=== PATIENT | female | born 1945 | race Asian ===

== ENCOUNTER 2022-04-28 18:22 | Inpatient (IN) ==
[2022-04-28] MEDS: Enoxaparin 40 MG/0.4 ML SYR SUBCUT SCH (21:13)
[2022-04-28] MEDS ORDERED: Furosemide 20 mg/2 ml IV VIAL IV SLOW PU ONE (22:35)
[2022-04-28 23:13] LABS: Urine Sodium Concentration < 18 mmol/L
[2022-04-28 23:30] LABS: Urine Osmo 713 mOsm/kg (150-1150)
[2022-04-28 23:53] LABS: Urine Chloride Concentration < 22 mmol/L; Urine Potassium Concentration 76.2 mmol/L
[2022-04-29 00:14] LABS: Albumin 3.1 g/dL (3.2-5.2)
[2022-04-29 00:17] LABS: Potassium 4.4 mmol/L (3.5-5.0)
[2022-04-29 00:21] LABS: Total Bilirubin 0.9 mg/dL (0.2-1.0)
[2022-04-29 00:40] LABS: Albumin/Globulin Ratio 1.3 (1-3); Calcium 8.3 mg/dL (8.6-10.3); Globulin 2.4 g/dL (2-4); Total Protein 5.5 g/dL (6.4-8.9); eGFR CKD-EPI 90.2 (>60)
[2022-04-29 00:41] LABS: Urine Chloride Concentration < 22 mmol/L; Urine Potassium Concentration 76.8 mmol/L
[2022-04-29 03:34] LABS: High Sensitivity Troponin 1 Hr 9 pg/mL (<15)
[2022-04-29 06:00] LABS: ABS Eosinophils 0.1 10^3/ul (0-0.6); ABS Lymphocytes 0.3 10^3/ul (1.0-4.8); ABS Monocytes 0.5 10^3/ul (0-0.8); ABS Neutrophils 6.3 10^3/ul (1.5-7.7); Hematocrit 44 % (35-47); Hemoglobin 14.5 g/dL (12.0-16.0); Lymphocyte % 4.4 %; Mean Corpuscular HGB Conc 33 g/dL (31-36); Mean Corpuscular Hemoglobin 31 pg (27-31); Mean Corpuscular Volume 93 fL (80-97); Mean Platelet Volume 7.2 fL (7.4-10.4); Nucleated Red Blood Cells % 0.1; Platelet Count 241 10^3/uL (150-450); Red Blood Count 4.75 10^6 /uL (3.70-4.87); Red Cell Distribution Width 17 % (10-15); White Blood Count 7.2 10^3/uL (3.5-10.8)
[2022-04-29 06:48] LABS: Calcium 8.1 mg/dL (8.6-10.3); Magnesium 1.7 mg/dL (1.9-2.7); Phosphorus 3.3 mg/dL (2.5-5.0); Potassium 4.2 mmol/L (3.5-5.0); eGFR CKD-EPI 90.2 (>60)
[2022-04-29] MEDS: Timolol 0.5% OPTH.SOL BTL BOTH EYES SCH ×2 (08:35→20:59)
[2022-04-29 10:13] LABS: Free T4 1.4 ng/dL (0.61-1.12)
[2022-04-29] MEDS ORDERED: Lidocaine 1% VIAL 10 MG/ML VIAL ONE (10:13)
[2022-04-29] MEDS ORDERED: NS 0.9% 250 ml 250 ML IV ONE (10:42)
[2022-04-29] MEDS ORDERED: Albumin Human 5% 12.5 GM/250 ML BTL IV ONE (12:00)
[2022-04-29] MEDS ORDERED: Albumin Human 5% 25 GM/500 ML BTL IV ONE (12:00)
[2022-04-29 12:09] LABS: Body Fluid WBC 213 /mcL
[2022-04-29 12:43] LABS: Body Fluid Appearance Clear; Body Fluid Band 1 %; Body Fluid Color Yellow; Body Fluid Mono 26 %; Body Fluid Source Pleural Fluid; Body Fluid Total Cells Counted 200
[2022-04-29 13:56] LABS: Free T3 1.8 pg/mL (2.5-3.9)
[2022-04-29] MEDS ORDERED: Lactated Ringers 500 ml BAG 500 ML IV ONE (14:03)
[2022-04-29 17:31] LABS: High Sensitivity Troponin 1 Hr 10 pg/mL (<15)
[2022-04-29] MEDS ORDERED: Lactated Ringers 500 ml BAG 250 ML IV ONE (20:15)
[2022-04-29] MEDS ORDERED: LACTATED RINGERS IV ONE (20:15)
[2022-04-29] MEDS ORDERED: Hydrocortisone INJ 100 MG/2ML 2 ML VIAL IV ONE (20:17)
[2022-04-29] MEDS ORDERED: Magnesium Sulfate 2 gm BAG 2 GM/50 ML BAG IVPB ONE (20:19)
[2022-04-29] MEDS: Enoxaparin 40 MG/0.4 ML SYR SUBCUT SCH (20:38)
[2022-04-29 20:46] LABS: C Reactive Protein 36.88 mg/L (<8.01)
[2022-04-29 20:57] LABS: ABS Eosinophils 0.1 10^3/ul (0-0.6); ABS Lymphocytes 0.3 10^3/ul (1.0-4.8); ABS Monocytes 0.5 10^3/ul (0-0.8); ABS Neutrophils 8.4 10^3/ul (1.5-7.7); Eosinophil % 0.7 %; Hematocrit 42 % (35-47); Hemoglobin 13.8 g/dL (12.0-16.0); Lymphocyte % 3.2 %; Mean Corpuscular HGB Conc 33 g/dL (31-36); Mean Corpuscular Hemoglobin 31 pg (27-31); Mean Corpuscular Volume 93 fL (80-97); Mean Platelet Volume 7.4 fL (7.4-10.4); Nucleated Red Blood Cells % 0.1; Platelet Count 228 10^3/uL (150-450); Red Blood Count 4.48 10^6 /uL (3.70-4.87); Red Cell Distribution Width 17 % (10-15); White Blood Count 9.4 10^3/uL (3.5-10.8)
[2022-04-29] MEDS: Latanoprost 0.005% 2.5 ml BTL BOTH EYES SCH (20:59)
[2022-04-29 21:24] LABS: Albumin 2.9 g/dL (3.2-5.2); Albumin/Globulin Ratio 1.3 (1-3); Calcium 7.8 mg/dL (8.6-10.3); Globulin 2.2 g/dL (2-4); Potassium 4.5 mmol/L (3.5-5.0); Total Bilirubin 0.7 mg/dL (0.2-1.0); Total Protein 5.1 g/dL (6.4-8.9); eGFR CKD-EPI 75.2 (>60)
[2022-04-29] MEDS: cefTRIAXone 1 gm/50 mL D5W 1 GM/50 ML BAG IV SCH (22:01)
[2022-04-30] MEDS ORDERED: Lactated Ringers 500 ml BAG 500 ML IV ONE (02:51)
[2022-04-30] MEDS: metroNIDAZOLE IV 500 MG/100ML 500 MG/100 ML BAG IVPB SCH ×3 (05:12→19:17)
[2022-04-30 05:28] LABS: ABS Lymphocytes 0.2 10^3/ul (1.0-4.8); ABS Monocytes 0.3 10^3/ul (0-0.8); ABS Neutrophils 6.6 10^3/ul (1.5-7.7); Eosinophil % 0.2 %; Hematocrit 39 % (35-47); Hemoglobin 13.3 g/dL (12.0-16.0); Lymphocyte % 3.3 %; Mean Corpuscular HGB Conc 34 g/dL (31-36); Mean Corpuscular Hemoglobin 32 pg (27-31); Mean Corpuscular Volume 94 fL (80-97); Mean Platelet Volume 7.3 fL (7.4-10.4); Nucleated Red Blood Cells % 0.1; Platelet Count 205 10^3/uL (150-450); Red Blood Count 4.17 10^6 /uL (3.70-4.87); Red Cell Distribution Width 17 % (10-15); White Blood Count 7.1 10^3/uL (3.5-10.8)
[2022-04-30 06:22] LABS: Albumin 2.7 g/dL (3.2-5.2); Albumin/Globulin Ratio 1.4 (1-3); Calcium 7.5 mg/dL (8.6-10.3); Magnesium 2.2 mg/dL (1.9-2.7); Potassium 4.1 mmol/L (3.5-5.0); Total Bilirubin 0.6 mg/dL (0.2-1.0); Total Protein 4.7 g/dL (6.4-8.9); eGFR CKD-EPI 89.6 (>60)
[2022-04-30] MEDS: Timolol 0.5% OPTH.SOL BTL BOTH EYES SCH ×2 (08:29→20:09)
[2022-04-30] MEDS ORDERED: NS 0.9% 250 ml 250 ML IV SCH (13:00)
[2022-04-30] MEDS: Latanoprost 0.005% 2.5 ml BTL BOTH EYES SCH (20:09)
[2022-04-30] MEDS: Enoxaparin 40 MG/0.4 ML SYR SUBCUT SCH (20:09)
[2022-04-30] MEDS: cefTRIAXone 1 gm/50 mL D5W 1 GM/50 ML BAG IV SCH (20:21)
[2022-05-01] MEDS: metroNIDAZOLE IV 500 MG/100ML 500 MG/100 ML BAG IVPB SCH ×3 (03:32→20:03)
[2022-05-01 05:16] LABS: ABS Eosinophils 0.1 10^3/ul (0-0.6); ABS Lymphocytes 0.3 10^3/ul (1.0-4.8); ABS Monocytes 0.5 10^3/ul (0-0.8); ABS Neutrophils 5.4 10^3/ul (1.5-7.7); Eosinophil % 1.9 %; Hematocrit 39 % (35-47); Hemoglobin 13.4 g/dL (12.0-16.0); Lymphocyte % 4.2 %; Mean Corpuscular HGB Conc 34 g/dL (31-36); Mean Corpuscular Hemoglobin 32 pg (27-31); Mean Corpuscular Volume 94 fL (80-97); Mean Platelet Volume 7.4 fL (7.4-10.4); Platelet Count 210 10^3/uL (150-450); Red Blood Count 4.17 10^6 /uL (3.70-4.87); Red Cell Distribution Width 17 % (10-15); White Blood Count 6.4 10^3/uL (3.5-10.8)
[2022-05-01 05:51] LABS: Calcium 7.3 mg/dL (8.6-10.3); Potassium 4.2 mmol/L (3.5-5.0); eGFR CKD-EPI 90.9 (>60)
[2022-05-01] MEDS: Timolol 0.5% OPTH.SOL BTL BOTH EYES SCH ×2 (07:40→20:20)
[2022-05-01] MEDS ORDERED: Lactated Ringers 1000 ml BAG 1,000 ML IV ONE (10:14)
[2022-05-01 13:44] LABS: Body Fluid Bilirubin 0.3 mg/dL; Fluid Type PLEURAL FLUID; Lactate Dehydrogenase, BF 72 U/L
[2022-05-01] MEDS ORDERED: Ondansetron 4 mg VIAL 2 MG/ML 2 ml VIAL IV PRN (19:15)
[2022-05-01] MEDS ORDERED: Ondansetron 4 mg VIAL 2 MG/ML 2 ml VIAL ONE (19:21)
[2022-05-01] MEDS: cefTRIAXone 1 gm/50 mL D5W 1 GM/50 ML BAG IV SCH (19:28)
[2022-05-01] MEDS: Enoxaparin 40 MG/0.4 ML SYR SUBCUT SCH (19:35)
[2022-05-01] MEDS: Latanoprost 0.005% 2.5 ml BTL BOTH EYES SCH (20:20)
[2022-05-02] MEDS: metroNIDAZOLE IV 500 MG/100ML 500 MG/100 ML BAG IVPB SCH ×3 (05:26→20:19)
[2022-05-02 07:38] LABS: ABS Lymphocytes 0.3 10^3/ul (1.0-4.8); ABS Monocytes 0.6 10^3/ul (0-0.8); ABS Neutrophils 8.1 10^3/ul (1.5-7.7); Eosinophil % 0.5 %; Hematocrit 45 % (35-47); Hemoglobin 15.4 g/dL (12.0-16.0); Lymphocyte % 3.2 %; Mean Corpuscular HGB Conc 34 g/dL (31-36); Mean Corpuscular Hemoglobin 33 pg (27-31); Mean Corpuscular Volume 95 fL (80-97); Mean Platelet Volume 7.3 fL (7.4-10.4); Nucleated Red Blood Cells % 0.1; Platelet Count 209 10^3/uL (150-450); Red Blood Count 4.75 10^6 /uL (3.70-4.87); Red Cell Distribution Width 17 % (10-15)
[2022-05-02 07:53] LABS: Blood Urea Nitrogen 21 mg/dL (6-24); CO2 Carbon Dioxide 29 mmol/L (22-32); Calcium 7.7 mg/dL (8.6-10.3); Chloride 93 mmol/L (101-111); Glucose 83 mg/dL (70-100); Potassium 4.4 mmol/L (3.5-5.0); Sodium 122 mmol/L (135-145); eGFR CKD-EPI 89.6 (>60)
[2022-05-02] MEDS: Timolol 0.5% OPTH.SOL BTL BOTH EYES SCH ×2 (09:11→20:25)
[2022-05-02 11:01] LABS: Glucose, BF 106 mg/dL
[2022-05-02 11:05] LABS: Fluid Type, Protein, Total PLEURAL FLUID; Total Protein, BF 2.4 g/dL
[2022-05-02] MEDS: Latanoprost 0.005% 2.5 ml BTL BOTH EYES SCH (20:20)
[2022-05-02] MEDS: Enoxaparin 40 MG/0.4 ML SYR SUBCUT SCH (20:21)
[2022-05-02] MEDS: cefTRIAXone 1 gm/50 mL D5W 1 GM/50 ML BAG IV SCH (23:12)
[2022-05-03] MEDS: metroNIDAZOLE IV 500 MG/100ML 500 MG/100 ML BAG IVPB SCH ×2 (05:14→12:00)
[2022-05-03 07:01] LABS: Calcium 7.9 mg/dL (8.6-10.3); Potassium 4.6 mmol/L (3.5-5.0); eGFR CKD-EPI 90.5 (>60)
[2022-05-03] MEDS: Timolol 0.5% OPTH.SOL BTL BOTH EYES SCH (08:47)
[2022-05-03] MEDS ORDERED: cefTRIAXone 1 gm/50 mL D5W 1 GM/50 ML BAG IV ONE (14:00)
[2022-05-03 16:28] VITALS: BP 119/75
== END 2022-05-03 16:35 | disposition home or self-care (01) | DRG 187 ==
LOC: ED 18:22 → EDHOLD 20:13 → SUATTDRO 20:13 → MEDTELE 04-29 09:55
PROVIDERS: ADMIT Internal Medicine; ATTEND Internal Medicine

== ENCOUNTER 2022-05-05 04:42 | Inpatient (IN) ==
[2022-05-05 05:03] LABS: Venous Bicarbonate HCO3 22.8 mmol/L (24-28)
[2022-05-05 05:05] LABS: ABS Lymphocytes 0.3 10^3/ul (1.0-4.8); ABS Monocytes 0.4 10^3/ul (0-0.8); ABS Neutrophils 9.5 10^3/ul (1.5-7.7); Eosinophil % 0.1 %; Hematocrit 45 % (35-47); Hemoglobin 14.6 g/dL (12.0-16.0); Lymphocyte % 2.5 %; Mean Corpuscular HGB Conc 33 g/dL (31-36); Mean Corpuscular Hemoglobin 31 pg (27-31); Mean Corpuscular Volume 95 fL (80-97); Mean Platelet Volume 7.2 fL (7.4-10.4); Nucleated Red Blood Cells % 0.3; Platelet Count 190 10^3/uL (150-450); Red Cell Distribution Width 18 % (10-15); White Blood Count 10.2 10^3/uL (3.5-10.8)
[2022-05-05 05:22] LABS: Albumin/Globulin Ratio 1.3 (1-3); Calcium 8.4 mg/dL (8.6-10.3); Globulin 2.4 g/dL (2-4); Total Bilirubin 0.6 mg/dL (0.2-1.0); Total Protein 5.4 g/dL (6.4-8.9); eGFR CKD-EPI 55.1 (>60)
[2022-05-05 05:24] LABS: Potassium 5.7 mmol/L (3.5-5.0)
[2022-05-05 06:12] LABS: Venous Bicarbonate HCO3 23.4 mmol/L (24-28)
[2022-05-05 06:52] LABS: High Sensitivity Troponin 1 Hr 13 pg/mL (<15)
[2022-05-05 08:08] LABS: Venous Bicarbonate HCO3 23.5 mmol/L (24-28)
[2022-05-05 09:04] LABS: PCO2 Arterial 55 mmHg (35-45)
[2022-05-05 09:05] LABS: PO2 Arterial 57 mmHg (80-100)
[2022-05-05] MEDS ORDERED: NS 0.9% 500 ml BAG 500 ML IV ONE ×2 (10:15→11:51)
[2022-05-05 10:25] LABS: Venous Bicarbonate HCO3 23.4 mmol/L (24-28)
[2022-05-05] MEDS ORDERED: fentaNYL 100 mcg/2 ml 50 MCG/ML VIAL ONE (14:02)
[2022-05-05 15:09] LABS: C Reactive Protein 50.24 mg/L (<8.01)
[2022-05-05] MEDS ORDERED: Norepinephrine 16MCG/ML BAGD5W 4,000 MCG/250 ML BAG IV ONE (16:57)
[2022-05-05] MEDS ORDERED: NORMOSOL-R pH 7.4 1000 mL BAG 1,000 ML IV SCH (17:00)
[2022-05-05] MEDS ORDERED: Norepinephrine 16MCG/ML BAGD5W 4,000 MCG/250 ML BAG IV SCH (17:00)
[2022-05-05 18:55] LABS: INR 1.64 (0.89-1.11)
[2022-05-05] MEDS ORDERED: Piperacillin/Tazobac ADVAN 3.375 GM in NS 0.9% 100 ml BAG 100 ML IV SCH (19:00)
[2022-05-05] MEDS: Cefepime 1 GM in Dextrose 1 GM/50 ML BAG IV SCH (20:41)
[2022-05-05] MEDS: Linezolid 600 MG IVPREMIX(*) 600 MG/300 ML BAG IVPB SCH (20:43)
[2022-05-05 21:56] LABS: Venous Bicarbonate HCO3 24.9 mmol/L (24-28)
[2022-05-06] MEDS ORDERED: Norepinephrine 16MCG/ML BAG NS 4,000 MCG/250 ML BAG IV SCH ×2 (01:00→01:29)
[2022-05-06 05:53] LABS: ABS Lymphocytes 0.2 10^3/ul (1.0-4.8); ABS Monocytes 0.6 10^3/ul (0-0.8); ABS Neutrophils 9.5 10^3/ul (1.5-7.7); Eosinophil % 0.3 %; Hematocrit 42 % (35-47); Lymphocyte % 1.8 %; Mean Corpuscular HGB Conc 33 g/dL (31-36); Mean Corpuscular Hemoglobin 31 pg (27-31); Mean Corpuscular Volume 94 fL (80-97); Mean Platelet Volume 7.1 fL (7.4-10.4); Nucleated Red Blood Cells % 0.3; Platelet Count 173 10^3/uL (150-450); Red Blood Count 4.51 10^6 /uL (3.70-4.87); Red Cell Distribution Width 17 % (10-15); White Blood Count 10.3 10^3/uL (3.5-10.8)
[2022-05-06 06:41] LABS: Calcium 8.2 mg/dL (8.6-10.3); Magnesium 1.8 mg/dL (1.9-2.7); Phosphorus 3.1 mg/dL (2.5-5.0); eGFR CKD-EPI 79.9 (>60)
[2022-05-06 06:48] LABS: Potassium 5.5 mmol/L (3.5-5.0)
[2022-05-06] MEDS ORDERED: Magnesium Sulfate 2 gm BAG 2 GM/50 ML BAG IVPB ONE (07:53)
[2022-05-06] MEDS: Cefepime 1 GM in Dextrose 1 GM/50 ML BAG IV SCH ×2 (07:53→19:14)
[2022-05-06] MEDS: Linezolid 600 MG IVPREMIX(*) 600 MG/300 ML BAG IVPB SCH ×2 (08:32→20:52)
[2022-05-06 09:33] LABS: Albumin 2.9 g/dL (3.2-5.2)
[2022-05-06] MEDS ORDERED: NORMOSOL-R pH 7.4 1000 mL BAG 1,000 ML IV SCH (10:00)
[2022-05-06 11:13] LABS: PCO2 Arterial 42 mmHg (35-45); PO2 Arterial 78 mmHg (80-100)
[2022-05-06] MEDS: Ondansetron 4 mg VIAL 2 MG/ML 2 ml VIAL IV PRN (23:18)
[2022-05-07 04:40] LABS: ABS Eosinophils 0.1 10^3/ul (0-0.6); ABS Lymphocytes 0.2 10^3/ul (1.0-4.8); ABS Monocytes 0.6 10^3/ul (0-0.8); ABS Neutrophils 8.5 10^3/ul (1.5-7.7); Hematocrit 41 % (35-47); Hemoglobin 13.4 g/dL (12.0-16.0); Lymphocyte % 1.9 %; Mean Corpuscular HGB Conc 33 g/dL (31-36); Mean Corpuscular Hemoglobin 31 pg (27-31); Mean Corpuscular Volume 94 fL (80-97); Nucleated Red Blood Cells % 0.3; Platelet Count 166 10^3/uL (150-450); Red Blood Count 4.36 10^6 /uL (3.70-4.87); Red Cell Distribution Width 17 % (10-15); White Blood Count 9.5 10^3/uL (3.5-10.8)
[2022-05-07 05:26] LABS: Blood Urea Nitrogen 25 mg/dL (6-24); CO2 Carbon Dioxide 31 mmol/L (22-32); Calcium 7.4 mg/dL (8.6-10.3); Chloride 92 mmol/L (101-111); Glucose 91 mg/dL (70-100); Magnesium 1.8 mg/dL (1.9-2.7); Phosphorus 1.7 mg/dL (2.5-5.0); Potassium 4.7 mmol/L (3.5-5.0); Sodium 121 mmol/L (135-145); eGFR CKD-EPI 93.7 (>60)
[2022-05-07] MEDS: Cefepime 1 GM in Dextrose 1 GM/50 ML BAG IV SCH ×2 (07:15→19:55)
[2022-05-07] MEDS ORDERED: Magnesium Sulfate 2 gm BAG 2 GM/50 ML BAG IVPB ONE (07:44)
[2022-05-07] MEDS ORDERED: Potassium Acid Phos 500 mg TAB PO ONE (07:45)
[2022-05-07] MEDS: Linezolid 600 MG IVPREMIX(*) 600 MG/300 ML BAG IVPB SCH ×2 (08:05→19:58)
[2022-05-07 21:33] LABS: Calcium 7.4 mg/dL (8.6-10.3); Magnesium 1.9 mg/dL (1.9-2.7); Phosphorus 1.8 mg/dL (2.5-5.0); Potassium 4.7 mmol/L (3.5-5.0)
[2022-05-08 06:04] LABS: ABS Eosinophils 0.1 10^3/ul (0-0.6); ABS Lymphocytes 0.2 10^3/ul (1.0-4.8); ABS Monocytes 0.5 10^3/ul (0-0.8); ABS Neutrophils 7.8 10^3/ul (1.5-7.7); Eosinophil % 1.5 %; Hematocrit 40 % (35-47); Hemoglobin 13.4 g/dL (12.0-16.0); Lymphocyte % 2.9 %; Mean Corpuscular HGB Conc 34 g/dL (31-36); Mean Corpuscular Hemoglobin 32 pg (27-31); Mean Corpuscular Volume 94 fL (80-97); Mean Platelet Volume 7.2 fL (7.4-10.4); Nucleated Red Blood Cells % 0.4; Platelet Count 160 10^3/uL (150-450); Red Blood Count 4.24 10^6 /uL (3.70-4.87); Red Cell Distribution Width 17 % (10-15); White Blood Count 8.7 10^3/uL (3.5-10.8)
[2022-05-08 06:39] LABS: Calcium 7.3 mg/dL (8.6-10.3); Magnesium 1.9 mg/dL (1.9-2.7); Phosphorus 1.7 mg/dL (2.5-5.0); Potassium 4.7 mmol/L (3.5-5.0); eGFR CKD-EPI 94.9 (>60)
[2022-05-08] MEDS: Cefepime 1 GM in Dextrose 1 GM/50 ML BAG IV SCH ×2 (08:06→17:22)
[2022-05-08] MEDS: Linezolid 600 MG IVPREMIX(*) 600 MG/300 ML BAG IVPB SCH ×2 (08:49→20:22)
[2022-05-08] MEDS ORDERED: Potassium Phosphate IV 15 MMOLE in NS 0.9% 250 ml 250 ML IVPB ONE (10:03)
[2022-05-08 12:06] LABS: Urine Osmo 632 mOsm/kg (150-1150)
[2022-05-09] MEDS: Cefepime 1 GM in Dextrose 1 GM/50 ML BAG IV SCH ×2 (05:18→17:02)
[2022-05-09 05:35] LABS: ABS Eosinophils 0.2 10^3/ul (0-0.6); ABS Lymphocytes 0.2 10^3/ul (1.0-4.8); ABS Monocytes 0.5 10^3/ul (0-0.8); ABS Neutrophils 8.5 10^3/ul (1.5-7.7); Eosinophil % 1.8 %; Hematocrit 39 % (35-47); Hemoglobin 13.1 g/dL (12.0-16.0); Mean Corpuscular HGB Conc 34 g/dL (31-36); Mean Corpuscular Hemoglobin 32 pg (27-31); Mean Corpuscular Volume 94 fL (80-97); Mean Platelet Volume 7.2 fL (7.4-10.4); Nucleated Red Blood Cells % 0.3; Platelet Count 163 10^3/uL (150-450); Red Blood Count 4.13 10^6 /uL (3.70-4.87); Red Cell Distribution Width 17 % (10-15); White Blood Count 9.4 10^3/uL (3.5-10.8)
[2022-05-09 06:18] LABS: Blood Urea Nitrogen 14 mg/dL (6-24); CO2 Carbon Dioxide 30 mmol/L (22-32); Calcium 7.1 mg/dL (8.6-10.3); Chloride 93 mmol/L (101-111); Glucose 95 mg/dL (70-100); Magnesium 1.6 mg/dL (1.9-2.7); Phosphorus 1.8 mg/dL (2.5-5.0); Potassium 4.6 mmol/L (3.5-5.0); Sodium 121 mmol/L (135-145); eGFR CKD-EPI 96.2 (>60)
[2022-05-09] MEDS ORDERED: Magnesium Sulf 4 GM/100 ML IV 4,000 MG/100 ML BAG IVPB ONE (07:30)
[2022-05-09] MEDS: Linezolid 600 MG IVPREMIX(*) 600 MG/300 ML BAG IVPB SCH ×2 (07:42→20:38)
[2022-05-09] MEDS ORDERED: Potassium Phosphate IV 15 MMOLE in NS 0.9% 250 ml 250 ML IVPB ONE (09:40)
[2022-05-09] MEDS ORDERED: Sodium Phosphate IV 30 MMOLE in NS 0.9% 250 ml 250 ML IV ONE (10:45)
[2022-05-09] MEDS: Enoxaparin 30 MG/0.3 ML SYR SUBCUT SCH (14:17)
[2022-05-09 18:28] LABS: Body Fluid Source Pleural Fluid
[2022-05-09 18:29] LABS: Body Fluid Appearance Clear; Body Fluid Color Yellow
[2022-05-09 22:44] LABS: Body Fluid Band 1 %; Body Fluid Mono 7 %; Body Fluid Other Cells 9; Body Fluid Total Cells Counted 200; Body Fluid WBC 465 /mcL
[2022-05-10] MEDS: Cefepime 1 GM in Dextrose 1 GM/50 ML BAG IV SCH ×2 (06:02→17:43)
[2022-05-10 06:41] LABS: ABS Eosinophils 0.2 10^3/ul (0-0.6); ABS Lymphocytes 0.3 10^3/ul (1.0-4.8); ABS Monocytes 0.5 10^3/ul (0-0.8); Eosinophil % 1.7 %; Hematocrit 41 % (35-47); Hemoglobin 13.8 g/dL (12.0-16.0); Mean Corpuscular HGB Conc 34 g/dL (31-36); Mean Corpuscular Hemoglobin 32 pg (27-31); Mean Corpuscular Volume 94 fL (80-97); Mean Platelet Volume 7.1 fL (7.4-10.4); Nucleated Red Blood Cells % 0.4; Platelet Count 171 10^3/uL (150-450); Red Blood Count 4.37 10^6 /uL (3.70-4.87); Red Cell Distribution Width 18 % (10-15); White Blood Count 8.9 10^3/uL (3.5-10.8)
[2022-05-10 06:58] LABS: Calcium 7.2 mg/dL (8.6-10.3); Phosphorus 2.5 mg/dL (2.5-5.0); Potassium 4.5 mmol/L (3.5-5.0); eGFR CKD-EPI 97.6 (>60)
[2022-05-10] MEDS: Linezolid 600 MG IVPREMIX(*) 600 MG/300 ML BAG IVPB SCH ×2 (08:00→19:51)
[2022-05-10] MEDS ORDERED: NS 0.9% 500 ml BAG 500 ML IV ONE (11:07)
[2022-05-10] MEDS: Enoxaparin 30 MG/0.3 ML SYR SUBCUT SCH (15:10)
[2022-05-10] MEDS: Ure-Na 15 GM POWD.PACK PO SCH (17:39)
[2022-05-11 04:49] LABS: ABS Eosinophils 0.1 10^3/ul (0-0.6); ABS Lymphocytes 0.3 10^3/ul (1.0-4.8); ABS Monocytes 0.4 10^3/ul (0-0.8); Eosinophil % 1.6 %; Hematocrit 42 % (35-47); Lymphocyte % 3.1 %; Mean Corpuscular HGB Conc 33 g/dL (31-36); Mean Corpuscular Hemoglobin 31 pg (27-31); Mean Corpuscular Volume 94 fL (80-97); Mean Platelet Volume 6.9 fL (7.4-10.4); Nucleated Red Blood Cells % 0.2; Platelet Count 168 10^3/uL (150-450); Red Cell Distribution Width 17 % (10-15); White Blood Count 8.8 10^3/uL (3.5-10.8)
[2022-05-11 05:11] LABS: Calcium 7.3 mg/dL (8.6-10.3); Magnesium 1.8 mg/dL (1.9-2.7); Phosphorus 1.8 mg/dL (2.5-5.0); Potassium 4.4 mmol/L (3.5-5.0); eGFR CKD-EPI 98.1 (>60)
[2022-05-11] MEDS: Cefepime 1 GM in Dextrose 1 GM/50 ML BAG IV SCH ×2 (05:56→18:19)
[2022-05-11] MEDS ORDERED: Magnesium Sulfate 2 gm BAG 2 GM/50 ML BAG IVPB ONE (06:34)
[2022-05-11] MEDS: Ure-Na 15 GM POWD.PACK PO SCH (09:41)
[2022-05-11] MEDS ORDERED: Potassium & Sodium Phos 250 mg = 1 PACKET PO SCH (10:00)
[2022-05-11] MEDS: Timolol 0.5% OPTH.SOL BTL BOTH EYES SCH ×2 (10:41→21:21)
[2022-05-11] MEDS: Linezolid 600 MG IVPREMIX(*) 600 MG/300 ML BAG IVPB SCH ×2 (10:48→19:48)
[2022-05-11] MEDS: Enoxaparin 30 MG/0.3 ML SYR SUBCUT SCH (13:49)
[2022-05-11] MEDS: Potassium & Sodium Phos 250 mg = 1 PACKET PO SCH ×2 (13:49→21:21)
[2022-05-11] MEDS ORDERED: Heparin DRIP 25,000 UNITS BAG 25,000 UNITS/500 ML BAG IV SCH (19:30)
[2022-05-11] MEDS ORDERED: Heparin 5000 UNITS/ML 1 mL VIAL IV SCH (20:00)
[2022-05-11 20:06] LABS: ABS Eosinophils 0.1 10^3/ul (0-0.6); ABS Lymphocytes 0.2 10^3/ul (1.0-4.8); ABS Monocytes 0.3 10^3/ul (0-0.8); ABS Neutrophils 7.4 10^3/ul (1.5-7.7); Eosinophil % 1.3 %; Hematocrit 44 % (35-47); Hemoglobin 14.7 g/dL (12.0-16.0); Lymphocyte % 2.8 %; Mean Corpuscular HGB Conc 34 g/dL (31-36); Mean Corpuscular Hemoglobin 32 pg (27-31); Mean Corpuscular Volume 94 fL (80-97); Nucleated Red Blood Cells % 0.4; Platelet Count 181 10^3/uL (150-450); Red Blood Count 4.66 10^6 /uL (3.70-4.87); Red Cell Distribution Width 18 % (10-15)
[2022-05-11 20:41] LABS: eGFR CKD-EPI 94.1 (>60)
[2022-05-11] MEDS: Latanoprost 0.005% 2.5 ml BTL BOTH EYES SCH (21:21)
[2022-05-12] MEDS: Cefepime 1 GM in Dextrose 1 GM/50 ML BAG IV SCH (05:43)
[2022-05-12 06:02] LABS: ABS Eosinophils 0.1 10^3/ul (0-0.6); ABS Lymphocytes 0.3 10^3/ul (1.0-4.8); ABS Monocytes 0.3 10^3/ul (0-0.8); ABS Neutrophils 8.1 10^3/ul (1.5-7.7); Eosinophil % 1.5 %; Hematocrit 44 % (35-47); Hemoglobin 14.7 g/dL (12.0-16.0); Lymphocyte % 3.3 %; Mean Corpuscular HGB Conc 33 g/dL (31-36); Mean Corpuscular Hemoglobin 31 pg (27-31); Mean Corpuscular Volume 94 fL (80-97); Mean Platelet Volume 7.1 fL (7.4-10.4); Nucleated Red Blood Cells % 0.2; Platelet Count 182 10^3/uL (150-450); Red Blood Count 4.68 10^6 /uL (3.70-4.87); Red Cell Distribution Width 17 % (10-15); White Blood Count 8.9 10^3/uL (3.5-10.8)
[2022-05-12] MEDS: Linezolid 600 MG IVPREMIX(*) 600 MG/300 ML BAG IVPB SCH (06:20)
[2022-05-12 07:25] LABS: Albumin 2.2 g/dL (3.2-5.2); Calcium 7.2 mg/dL (8.6-10.3); Magnesium 1.8 mg/dL (1.9-2.7); Potassium 4.1 mmol/L (3.5-5.0)
[2022-05-12 07:31] LABS: Phosphorus 2.3 mg/dL (2.5-5.0); eGFR CKD-EPI 94.5 (>60)
[2022-05-12] MEDS: Ondansetron 4 mg VIAL 2 MG/ML 2 ml VIAL IV PRN ×2 (08:17→15:08)
[2022-05-12] MEDS: Potassium & Sodium Phos 250 mg = 1 PACKET PO SCH ×2 (08:24→13:18)
[2022-05-12] MEDS: Timolol 0.5% OPTH.SOL BTL BOTH EYES SCH ×2 (11:52→21:21)
[2022-05-12] MEDS ORDERED: NS IVPB ONE (13:43)
[2022-05-12] MEDS ORDERED: POTASSIUM PHOSPHATE IVPB ONE (13:43)
[2022-05-12] MEDS: Metoclopramide 5 MG/ML VIAL (10 mg) IV SCH (18:16)
[2022-05-12] MEDS ORDERED: Cefepime ADVAN 1 GM in NS 0.9% 50 ML 50 ML IVPB SCH (19:00)
[2022-05-12] MEDS ORDERED: Cefepime 1 GM in Dextrose 1 GM/50 ML BAG IV SCH (20:00)
[2022-05-12] MEDS: CEFEPIME 2 GM in Dextrose 50 mL IV SCH (20:02)
[2022-05-12] MEDS: Latanoprost 0.005% 2.5 ml BTL BOTH EYES SCH (21:21)
[2022-05-13 06:01] LABS: ABS Eosinophils 0.1 10^3/ul (0-0.6); ABS Lymphocytes 0.3 10^3/ul (1.0-4.8); ABS Monocytes 0.3 10^3/ul (0-0.8); ABS Neutrophils 5.8 10^3/ul (1.5-7.7); Eosinophil % 1.6 %; Hematocrit 41 % (35-47); Hemoglobin 13.8 g/dL (12.0-16.0); Lymphocyte % 4.6 %; Mean Corpuscular HGB Conc 33 g/dL (31-36); Mean Corpuscular Hemoglobin 32 pg (27-31); Mean Corpuscular Volume 95 fL (80-97); Mean Platelet Volume 7.2 fL (7.4-10.4); Nucleated Red Blood Cells % 0.4; Platelet Count 157 10^3/uL (150-450); Red Blood Count 4.37 10^6 /uL (3.70-4.87); Red Cell Distribution Width 17 % (10-15); White Blood Count 6.5 10^3/uL (3.5-10.8)
[2022-05-13 06:31] LABS: Calcium 7.4 mg/dL (8.6-10.3); Potassium 4.3 mmol/L (3.5-5.0); eGFR CKD-EPI 91.9 (>60)
[2022-05-13] MEDS: Ondansetron 4 mg VIAL 2 MG/ML 2 ml VIAL IV SCH ×2 (07:48→17:43)
[2022-05-13] MEDS: CEFEPIME 2 GM in Dextrose 50 mL IV SCH (07:49)
[2022-05-13] MEDS: Timolol 0.5% OPTH.SOL BTL BOTH EYES SCH ×2 (08:07→21:39)
[2022-05-13] MEDS: Metoclopramide 5 MG/ML VIAL (10 mg) IV SCH (12:05)
[2022-05-13] MEDS ORDERED: Polyethylene Glycol 3350 17 GM PACKET PO ONE (14:24)
[2022-05-13 15:09] LABS: Magnesium 1.8 mg/dL (1.9-2.7)
[2022-05-13] MEDS: Ure-Na 15 GM POWD.PACK PO SCH (15:23)
[2022-05-13] MEDS: Cefepime 2 GM in NS 0.9% 50 ML 50 ML IVPB SCH (21:39)
[2022-05-13] MEDS: Latanoprost 0.005% 2.5 ml BTL BOTH EYES SCH (21:39)
[2022-05-13] MEDS ORDERED: Lactated Ringers 500 ml BAG 500 ML IV ONE (21:54)
[2022-05-14] MEDS: Ondansetron 4 mg VIAL 2 MG/ML 2 ml VIAL IV SCH ×2 (07:29→17:24)
[2022-05-14] MEDS: Ure-Na 15 GM POWD.PACK PO SCH (07:30)
[2022-05-14 07:59] LABS: ABS Eosinophils 0.1 10^3/ul (0-0.6); ABS Lymphocytes 0.3 10^3/ul (1.0-4.8); ABS Monocytes 0.3 10^3/ul (0-0.8); ABS Neutrophils 7.4 10^3/ul (1.5-7.7); Eosinophil % 1.1 %; Hematocrit 43 % (35-47); Hemoglobin 14.4 g/dL (12.0-16.0); Lymphocyte % 3.2 %; Mean Corpuscular HGB Conc 34 g/dL (31-36); Mean Corpuscular Hemoglobin 32 pg (27-31); Mean Corpuscular Volume 95 fL (80-97); Mean Platelet Volume 7.2 fL (7.4-10.4); Nucleated Red Blood Cells % 0.4; Platelet Count 158 10^3/uL (150-450); Red Blood Count 4.54 10^6 /uL (3.70-4.87); Red Cell Distribution Width 17 % (10-15)
[2022-05-14 08:08] LABS: INR 1.68 (0.89-1.11)
[2022-05-14 08:50] LABS: Calcium 7.9 mg/dL (8.6-10.3); Potassium 4.4 mmol/L (3.5-5.0); eGFR CKD-EPI 78.7 (>60)
[2022-05-14] MEDS: Cefepime 2 GM in NS 0.9% 50 ML 50 ML IVPB SCH ×2 (10:18→20:56)
[2022-05-14] MEDS: Timolol 0.5% OPTH.SOL BTL BOTH EYES SCH ×2 (10:18→20:56)
[2022-05-14] MEDS ORDERED: NS 0.9% 250 ml 250 ML IV ONE (11:41)
[2022-05-14] MEDS: Metoclopramide 5 MG/ML VIAL (10 mg) IV SCH (11:50)
[2022-05-14] MEDS: Albumin Human 25% 25 GM/100 ML BTL IV SCH ×2 (17:24→22:20)
[2022-05-14] MEDS: Latanoprost 0.005% 2.5 ml BTL BOTH EYES SCH (20:56)
[2022-05-15] MEDS: Albumin Human 25% 25 GM/100 ML BTL IV SCH ×3 (04:54→21:07)
[2022-05-15 05:30] LABS: ABS Eosinophils 0.1 10^3/ul (0-0.6); ABS Lymphocytes 0.2 10^3/ul (1.0-4.8); ABS Monocytes 0.2 10^3/ul (0-0.8); ABS Neutrophils 5.2 10^3/ul (1.5-7.7); Eosinophil % 2.2 %; Hematocrit 33 % (35-47); Hemoglobin 10.7 g/dL (12.0-16.0); Lymphocyte % 3.3 %; Mean Corpuscular HGB Conc 33 g/dL (31-36); Mean Corpuscular Hemoglobin 31 pg (27-31); Mean Corpuscular Volume 95 fL (80-97); Mean Platelet Volume 7.2 fL (7.4-10.4); Nucleated Red Blood Cells % 0.4; Platelet Count 106 10^3/uL (150-450); Red Blood Count 3.47 10^6 /uL (3.70-4.87); Red Cell Distribution Width 18 % (10-15); White Blood Count 5.8 10^3/uL (3.5-10.8)
[2022-05-15 05:55] LABS: Albumin 2.9 g/dL (3.2-5.2); Albumin/Globulin Ratio 2.1 (1-3); Direct Bilirubin 0.1 mg/dL (0.03-0.18); Globulin 1.4 g/dL (2-4); Indirect Bilirubin 0.7 mg/dL (0.3-1.0); Magnesium 1.7 mg/dL (1.9-2.7); Phosphorus 2.8 mg/dL (2.5-5.0); Potassium 3.9 mmol/L (3.5-5.0); Total Bilirubin 0.8 mg/dL (0.2-1.0); Total Protein 4.3 g/dL (6.4-8.9); eGFR CKD-EPI 81.2 (>60)
[2022-05-15] MEDS: Cefepime 2 GM in NS 0.9% 50 ML 50 ML IVPB SCH (08:30)
[2022-05-15] MEDS: Ure-Na 15 GM POWD.PACK PO SCH (08:31)
[2022-05-15] MEDS: Ondansetron 4 mg VIAL 2 MG/ML 2 ml VIAL IV SCH ×2 (08:31→16:08)
[2022-05-15] MEDS: Timolol 0.5% OPTH.SOL BTL BOTH EYES SCH ×2 (08:33→21:09)
[2022-05-15] MEDS ORDERED: ALBUMIN HUMAN 25% IV ONE (11:20)
[2022-05-15 11:31] LABS: Urine Osmo 652 mOsm/kg (150-1150)
[2022-05-15 11:43] LABS: Glucose, BF 120 mg/dL
[2022-05-15 11:46] LABS: Fluid Type, Protein, Total PLEURAL FLUID
[2022-05-15] MEDS: Bumetanide IV 0.25 MG/ML 4 ml VIAL (1 mg) SLOW PUSH SCH ×2 (11:58→21:07)
[2022-05-15] MEDS: Metoclopramide 5 MG/ML VIAL (10 mg) IV SCH (11:58)
[2022-05-15] MEDS ORDERED: Albumin Human 25% 25 GM/100 ML BTL IV SCH (13:00)
[2022-05-15 15:06] LABS: ABS Eosinophils 0.1 10^3/ul (0-0.6); ABS Lymphocytes 0.2 10^3/ul (1.0-4.8); ABS Monocytes 0.2 10^3/ul (0-0.8); ABS Neutrophils 5.8 10^3/ul (1.5-7.7); Eosinophil % 1.4 %; Hematocrit 37 % (35-47); Lymphocyte % 3.3 %; Mean Corpuscular HGB Conc 33 g/dL (31-36); Mean Corpuscular Hemoglobin 31 pg (27-31); Mean Corpuscular Volume 95 fL (80-97); Mean Platelet Volume 7.4 fL (7.4-10.4); Nucleated Red Blood Cells % 0.4; Platelet Count 108 10^3/uL (150-450); Red Blood Count 3.89 10^6 /uL (3.70-4.87); Red Cell Distribution Width 18 % (10-15); White Blood Count 6.3 10^3/uL (3.5-10.8)
[2022-05-15] MEDS ORDERED: Cefepime ADVAN 1 GM in NS 0.9% 50 ML 50 ML IVPB SCH (17:38)
[2022-05-15 18:30] LABS: Osmolality Serum 273 mOsm/kg (275-295)
[2022-05-15 20:06] LABS: Body Fluid Appearance Cloudy; Body Fluid Color Yellow
[2022-05-15 20:07] LABS: Body Fluid Source Pleural Fluid
[2022-05-15] MEDS ORDERED: Cefepime 1 GM in Dextrose 1 GM/50 ML BAG IV SCH (21:00)
[2022-05-15] MEDS: Latanoprost 0.005% 2.5 ml BTL BOTH EYES SCH (21:09)
[2022-05-15 21:40] LABS: Body Fluid Mono 9 %; Body Fluid Other Cells 7; Body Fluid Total Cells Counted 200
[2022-05-15 21:42] LABS: Body Fluid WBC 108 /mcL
[2022-05-16 06:07] LABS: Hematocrit 32 % (35-47); Hemoglobin 10.4 g/dL (12.0-16.0); Mean Corpuscular HGB Conc 33 g/dL (31-36); Mean Corpuscular Hemoglobin 31 pg (27-31); Mean Corpuscular Volume 94 fL (80-97); Red Blood Count 3.35 10^6 /uL (3.70-4.87); Red Cell Distribution Width 17 % (10-15); White Blood Count 5.8 10^3/uL (3.5-10.8)
[2022-05-16 06:23] LABS: ABS Eosinophils 0.1 10^3/ul (0-0.6); ABS Lymphocytes 0.2 10^3/ul (1.0-4.8); ABS Monocytes 0.2 10^3/ul (0-0.8); ABS Neutrophils 5.2 10^3/ul (1.5-7.7); Eosinophil % 2.4 %; Mean Platelet Volume 7.3 fL (7.4-10.4); Nucleated Red Blood Cells % 0.2; Platelet Count 83 10^3/uL (150-450)
[2022-05-16 06:39] LABS: Calcium 8.8 mg/dL (8.6-10.3); Magnesium 1.6 mg/dL (1.9-2.7); Phosphorus 2.6 mg/dL (2.5-5.0); Potassium 3.2 mmol/L (3.5-5.0); eGFR CKD-EPI 77.5 (>60)
[2022-05-16] MEDS: Bumetanide IV 0.25 MG/ML 4 ml VIAL (1 mg) SLOW PUSH SCH (07:45)
[2022-05-16] MEDS ORDERED: Magnesium Sulfate 2 gm BAG 2 GM/50 ML BAG IVPB ONE (07:45)
[2022-05-16] MEDS: Albumin Human 25% 25 GM/100 ML BTL IV SCH ×2 (07:45→22:40)
[2022-05-16] MEDS: Ondansetron 4 mg VIAL 2 MG/ML 2 ml VIAL IV SCH ×2 (07:45→16:53)
[2022-05-16] MEDS: Ure-Na 15 GM POWD.PACK PO SCH (07:52)
[2022-05-16] MEDS: Timolol 0.5% OPTH.SOL BTL BOTH EYES SCH ×2 (07:57→22:40)
[2022-05-16] MEDS ORDERED: Albumin Human 25% 25 GM/100 ML BTL IV SCH (08:00)
[2022-05-16] MEDS: Potassium Chlor 20 meq TAB.ER PO SCH ×2 (08:09→22:24)
[2022-05-16 11:32] LABS: ABS Basophils 0.1 10^3/ul (0-0.2); ABS Eosinophils 0.1 10^3/ul (0-0.6); ABS Lymphocytes 0.2 10^3/ul (1.0-4.8); ABS Monocytes 0.2 10^3/ul (0-0.8); ABS Neutrophils 6.3 10^3/ul (1.5-7.7); Eosinophil % 1.7 %; Hematocrit 33 % (35-47); Hemoglobin 10.9 g/dL (12.0-16.0); Lymphocyte % 3.1 %; Mean Corpuscular HGB Conc 33 g/dL (31-36); Mean Corpuscular Hemoglobin 31 pg (27-31); Mean Corpuscular Volume 94 fL (80-97); Mean Platelet Volume 7.3 fL (7.4-10.4); Nucleated Red Blood Cells % 0.3; Platelet Count 83 10^3/uL (150-450); Red Blood Count 3.54 10^6 /uL (3.70-4.87); Red Cell Distribution Width 17 % (10-15); White Blood Count 6.9 10^3/uL (3.5-10.8)
[2022-05-16] MEDS: Metoclopramide 5 MG/ML VIAL (10 mg) IV SCH (11:33)
[2022-05-16 11:51] LABS: Calcium 9.6 mg/dL (8.6-10.3); Potassium 3.6 mmol/L (3.5-5.0)
[2022-05-16] MEDS: Latanoprost 0.005% 2.5 ml BTL BOTH EYES SCH (22:40)
[2022-05-17 06:15] LABS: ABS Basophils 0.1 10^3/ul (0-0.2); ABS Eosinophils 0.1 10^3/ul (0-0.6); ABS Lymphocytes 0.2 10^3/ul (1.0-4.8); ABS Monocytes 0.2 10^3/ul (0-0.8); ABS Neutrophils 4.7 10^3/ul (1.5-7.7); Eosinophil % 2.6 %; Hematocrit 30 % (35-47); Lymphocyte % 3.9 %; Mean Corpuscular HGB Conc 33 g/dL (31-36); Mean Corpuscular Hemoglobin 31 pg (27-31); Mean Corpuscular Volume 95 fL (80-97); Mean Platelet Volume 7.7 fL (7.4-10.4); Nucleated Red Blood Cells % 0.1; Platelet Count 70 10^3/uL (150-450); Red Blood Count 3.19 10^6 /uL (3.70-4.87); Red Cell Distribution Width 18 % (10-15); White Blood Count 5.3 10^3/uL (3.5-10.8)
[2022-05-17 06:32] LABS: Calcium 9.1 mg/dL (8.6-10.3); Potassium 4.2 mmol/L (3.5-5.0); eGFR CKD-EPI 75.2 (>60)
[2022-05-17 07:15] LABS: PCO2 Arterial 57 mmHg (35-45); PO2 Arterial 83 mmHg (80-100)
[2022-05-17] MEDS: Ure-Na 15 GM POWD.PACK PO SCH (07:48)
[2022-05-17] MEDS: Ondansetron 4 mg VIAL 2 MG/ML 2 ml VIAL IV SCH (07:48)
[2022-05-17] MEDS: Potassium Chlor 20 meq TAB.ER PO SCH (07:49)
[2022-05-17] MEDS: Timolol 0.5% OPTH.SOL BTL BOTH EYES SCH ×2 (07:50→22:46)
[2022-05-17 09:26] LABS: Direct Bilirubin 0.2 mg/dL (0.03-0.18)
[2022-05-17] MEDS: Albumin Human 25% 25 GM/100 ML BTL IV SCH ×2 (10:11→22:46)
[2022-05-17 11:30] LABS: Indirect Bilirubin 0.7 mg/dL (0.3-1.0); Total Bilirubin 0.9 mg/dL (0.2-1.0)
[2022-05-17 11:54] LABS: Fluid Type, Protein, Total PLEURAL; Total Protein, BF 1.4 g/dL
[2022-05-17 11:55] LABS: Glucose, BF 118 mg/dL
[2022-05-17 17:33] LABS: Urine Appearance Clear; Urine Bilirubin Negative (Negative); Urine Blood 3+ (Large) (Negative); Urine Color Yellow; Urine Glucose Negative (Negative); Urine Ketones Negative (Negative); Urine Nitrite Negative (Negative); Urine Protein 2+ (100 mg/dL) (Negative); Urine Specific Gravity 1.015 (1.005-1.030); Urine Urobilinogen 0.2 (Negative) (Negative); Urine pH 8.5 (5.0-9.0)
[2022-05-17 17:37] LABS: Urine Bacteria 1+ (Absent); Urine Red Blood Cell 3+(>10/hpf) (Absent); Urine White Blood Cell 1+(6-10/hpf) (Absent)
[2022-05-17] MEDS: Latanoprost 0.005% 2.5 ml BTL BOTH EYES SCH (22:40)
[2022-05-18 05:41] LABS: ABS Basophils 0.1 10^3/ul (0-0.2); ABS Eosinophils 0.1 10^3/ul (0-0.6); ABS Lymphocytes 0.2 10^3/ul (1.0-4.8); ABS Monocytes 0.2 10^3/ul (0-0.8); ABS Neutrophils 5.5 10^3/ul (1.5-7.7); Eosinophil % 1.9 %; Hematocrit 30 % (35-47); Hemoglobin 9.8 g/dL (12.0-16.0); Mean Corpuscular HGB Conc 33 g/dL (31-36); Mean Corpuscular Hemoglobin 32 pg (27-31); Mean Corpuscular Volume 95 fL (80-97); Mean Platelet Volume 8.3 fL (7.4-10.4); Nucleated Red Blood Cells % 0.1; Platelet Count 63 10^3/uL (150-450); Red Blood Count 3.12 10^6 /uL (3.70-4.87); Red Cell Distribution Width 17 % (10-15); White Blood Count 6.1 10^3/uL (3.5-10.8)
[2022-05-18 05:58] LABS: UR Microalbumin (mg/L) 336.3 mg/L; Urine Creatinine 41.41 mg/dL; Urine Creatinine Concentration 41.41 mg/dL; Urine Microalbumin/Creatinine 812.1 (<31)
[2022-05-18 06:04] LABS: Calcium 9.3 mg/dL (8.6-10.3); Magnesium 1.9 mg/dL (1.9-2.7); Phosphorus 2.1 mg/dL (2.5-5.0); Potassium 3.8 mmol/L (3.5-5.0); eGFR CKD-EPI 85.2 (>60)
[2022-05-18 06:13] LABS: Urine Appearance Clear; Urine Bilirubin Negative (Negative); Urine Color Yellow; Urine Glucose Negative (Negative); Urine Ketones Negative (Negative); Urine Protein 2+ (100 mg/dL) (Negative); Urine Specific Gravity 1.015 (1.005-1.030); Urine pH 8.5 (5.0-9.0)
[2022-05-18 06:14] LABS: Urine Nitrite Negative (Negative); Urine Urobilinogen 0.2 (Negative) (Negative)
[2022-05-18 07:16] LABS: Urine Bacteria Absent (Absent); Urine Red Blood Cell 3+(>10/hpf) (Absent); Urine White Blood Cell Trace(0-5/hpf) (Absent)
[2022-05-18] MEDS: Ure-Na 15 GM POWD.PACK PO SCH (10:36)
[2022-05-18] MEDS: Timolol 0.5% OPTH.SOL BTL BOTH EYES SCH ×2 (10:43→22:50)
[2022-05-18] MEDS: Albumin Human 25% 25 GM/100 ML BTL IV SCH ×2 (10:49→22:47)
[2022-05-18 14:44] LABS: PCO2 Arterial 59 mmHg (35-45); PO2 Arterial 82 mmHg (80-100)
[2022-05-18 15:42] LABS: Calcium 10.2 mg/dL (8.6-10.3); Potassium 3.7 mmol/L (3.5-5.0); eGFR CKD-EPI 91.2 (>60)
[2022-05-18 21:13] LABS: HIT ELISA 0.075 OD (<0.400); Heparin PF4 Antibody Interp Negative (Negative)
[2022-05-18] MEDS: Latanoprost 0.005% 2.5 ml BTL BOTH EYES SCH (22:50)
[2022-05-19 04:47] LABS: ABS Basophils 0.1 10^3/ul (0-0.2); ABS Eosinophils 0.1 10^3/ul (0-0.6); ABS Lymphocytes 0.2 10^3/ul (1.0-4.8); ABS Monocytes 0.2 10^3/ul (0-0.8); ABS Neutrophils 5.4 10^3/ul (1.5-7.7); Hematocrit 25 % (35-47); Hemoglobin 8.2 g/dL (12.0-16.0); Lymphocyte % 4.1 %; Mean Corpuscular HGB Conc 33 g/dL (31-36); Mean Corpuscular Hemoglobin 31 pg (27-31); Mean Corpuscular Volume 96 fL (80-97); Mean Platelet Volume 8.5 fL (7.4-10.4); Nucleated Red Blood Cells % 0.1; Platelet Count 49 10^3/uL (150-450); Red Blood Count 2.62 10^6 /uL (3.70-4.87); Red Cell Distribution Width 17 % (10-15)
[2022-05-19 05:11] LABS: Calcium 9.7 mg/dL (8.6-10.3); Magnesium 1.9 mg/dL (1.9-2.7); Phosphorus 2.7 mg/dL (2.5-5.0); Potassium 3.6 mmol/L (3.5-5.0); eGFR CKD-EPI 93.3 (>60)
[2022-05-19] MEDS ORDERED: Potassium Chlor 20 meq TAB.ER PO ONE (08:04)
[2022-05-19 08:36] LABS: Folate 12.69 ng/mL (5.90-24.80)
[2022-05-19] MEDS: Albumin Human 25% 25 GM/100 ML BTL IV SCH (09:08)
[2022-05-19] MEDS: Timolol 0.5% OPTH.SOL BTL BOTH EYES SCH ×2 (09:11→21:32)
[2022-05-19] MEDS ORDERED: Lidocaine 2% PF 5 ML VIAL IV ONE (11:37)
[2022-05-19] MEDS ORDERED: Iohexol 350 (CONTRAST) 500 ML MDV IV ONE (14:41)
[2022-05-19 17:25] LABS: ABS Basophils 0.1 10^3/ul (0-0.2); ABS Eosinophils 0.1 10^3/ul (0-0.6); ABS Lymphocytes 0.2 10^3/ul (1.0-4.8); ABS Monocytes 0.2 10^3/ul (0-0.8); ABS Neutrophils 6.2 10^3/ul (1.5-7.7); Hematocrit 26 % (35-47); Hemoglobin 8.4 g/dL (12.0-16.0); Lymphocyte % 3.1 %; Mean Corpuscular HGB Conc 32 g/dL (31-36); Mean Corpuscular Hemoglobin 31 pg (27-31); Mean Corpuscular Volume 96 fL (80-97); Mean Platelet Volume 8.3 fL (7.4-10.4); Platelet Count 44 10^3/uL (150-450); Red Blood Count 2.74 10^6 /uL (3.70-4.87); Red Cell Distribution Width 17 % (10-15); White Blood Count 6.8 10^3/uL (3.5-10.8)
[2022-05-19] MEDS: Latanoprost 0.005% 2.5 ml BTL BOTH EYES SCH (21:31)
[2022-05-20 03:45] LABS: Hematocrit 24 % (35-47); Hemoglobin 7.9 g/dL (12.0-16.0); Mean Corpuscular HGB Conc 33 g/dL (31-36); Mean Corpuscular Hemoglobin 32 pg (27-31); Mean Corpuscular Volume 96 fL (80-97); Mean Platelet Volume 8.8 fL (7.4-10.4); Platelet Count 38 10^3/uL (150-450); Red Blood Count 2.47 10^6 /uL (3.70-4.87); Red Cell Distribution Width 17 % (10-15)
[2022-05-20 09:33] LABS: Calcium 9.6 mg/dL (8.6-10.3); Potassium 4.4 mmol/L (3.5-5.0); eGFR CKD-EPI 93.3 (>60)
[2022-05-20] MEDS: Timolol 0.5% OPTH.SOL BTL BOTH EYES SCH ×2 (09:59→21:49)
[2022-05-20 11:27] LABS: Calcium 9.9 mg/dL (8.6-10.3); Potassium 4.5 mmol/L (3.5-5.0)
[2022-05-20 11:33] LABS: eGFR CKD-EPI 93.7 (>60)
[2022-05-20 18:26] LABS: Activated Partial Thrombo Time 34.9 seconds (26.0-38.0); Fibrinogen 256.5 mg/dL (110.8-404.3); INR 3.16 (0.89-1.11)
[2022-05-20] MEDS: Latanoprost 0.005% 2.5 ml BTL BOTH EYES SCH (21:49)
[2022-05-20 21:58] LABS: ABS Eosinophils 0.1 10^3/ul (0-0.6); ABS Lymphocytes 0.2 10^3/ul (1.0-4.8); ABS Monocytes 0.3 10^3/ul (0-0.8); ABS Neutrophils 5.5 10^3/ul (1.5-7.7); Hematocrit 23 % (35-47); Hemoglobin 7.5 g/dL (12.0-16.0); Lymphocyte % 3.7 %; Mean Corpuscular HGB Conc 33 g/dL (31-36); Mean Corpuscular Hemoglobin 31 pg (27-31); Mean Corpuscular Volume 95 fL (80-97); Mean Platelet Volume 9.3 fL (7.4-10.4); Platelet Count 48 10^3/uL (150-450); Red Blood Count 2.44 10^6 /uL (3.70-4.87); Red Cell Distribution Width 17 % (10-15); White Blood Count 6.2 10^3/uL (3.5-10.8)
[2022-05-21 05:49] LABS: ABS Eosinophils 0.1 10^3/ul (0-0.6); ABS Lymphocytes 0.2 10^3/ul (1.0-4.8); ABS Monocytes 0.4 10^3/ul (0-0.8); ABS Neutrophils 4.8 10^3/ul (1.5-7.7); Eosinophil % 1.4 %; Hematocrit 22 % (35-47); Hemoglobin 7.3 g/dL (12.0-16.0); Lymphocyte % 4.1 %; Mean Corpuscular HGB Conc 33 g/dL (31-36); Mean Corpuscular Hemoglobin 31 pg (27-31); Mean Corpuscular Volume 95 fL (80-97); Mean Platelet Volume 9.8 fL (7.4-10.4); Platelet Count 55 10^3/uL (150-450); Red Blood Count 2.32 10^6 /uL (3.70-4.87); Red Cell Distribution Width 17 % (10-15); White Blood Count 5.5 10^3/uL (3.5-10.8)
[2022-05-21] MEDS: Pantoprazole VIAL 40 MG VIAL IV SCH ×2 (08:49→21:19)
[2022-05-21] MEDS: Timolol 0.5% OPTH.SOL BTL BOTH EYES SCH ×2 (08:50→21:19)
[2022-05-21] MEDS: Latanoprost 0.005% 2.5 ml BTL BOTH EYES SCH (21:19)
[2022-05-22 06:46] LABS: ABS Lymphocytes 0.3 10^3/ul (1.0-4.8); ABS Monocytes 0.4 10^3/ul (0-0.8); ABS Neutrophils 3.8 10^3/ul (1.5-7.7); Eosinophil % 0.8 %; Hematocrit 22 % (35-47); Hemoglobin 7.3 g/dL (12.0-16.0); Lymphocyte % 5.6 %; Mean Corpuscular HGB Conc 33 g/dL (31-36); Mean Corpuscular Hemoglobin 32 pg (27-31); Mean Corpuscular Volume 96 fL (80-97); Mean Platelet Volume 8.8 fL (7.4-10.4); Nucleated Red Blood Cells % 0.1; Platelet Count 35 10^3/uL (150-450); Red Blood Count 2.33 10^6 /uL (3.70-4.87); Red Cell Distribution Width 17 % (10-15); White Blood Count 4.6 10^3/uL (3.5-10.8)
[2022-05-22 07:25] LABS: Calcium 9.1 mg/dL (8.6-10.3); Potassium 4.3 mmol/L (3.5-5.0); eGFR CKD-EPI 93.3 (>60)
[2022-05-22] MEDS: Pantoprazole VIAL 40 MG VIAL IV SCH ×2 (10:32→20:53)
[2022-05-22] MEDS: Timolol 0.5% OPTH.SOL BTL BOTH EYES SCH ×2 (10:48→20:52)
[2022-05-22] MEDS ORDERED: Morphine ORAL CONCENTRATE 5 MG/0.25 ML ORAL.SYRIN SL PRN (15:14)
[2022-05-22] MEDS: Latanoprost 0.005% 2.5 ml BTL BOTH EYES SCH (20:53)
[2022-05-23] MEDS ORDERED: Alteplase (CATHFLO) 2 MG VIAL IV ONE (06:10)
[2022-05-23 06:43] LABS: Hematocrit 24 % (35-47); Hemoglobin 7.8 g/dL (12.0-16.0); Mean Corpuscular HGB Conc 33 g/dL (31-36); Mean Corpuscular Hemoglobin 32 pg (27-31); Mean Corpuscular Volume 97 fL (80-97); Mean Platelet Volume 10.1 fL (7.4-10.4); Platelet Count 59 10^3/uL (150-450); Red Blood Count 2.46 10^6 /uL (3.70-4.87); Red Cell Distribution Width 17 % (10-15); White Blood Count 5.4 10^3/uL (3.5-10.8)
[2022-05-23 07:00] LABS: Anisocytosis 1+
[2022-05-23 07:01] LABS: ABS Eosinophils 0.1 10^3/ul (0-0.6); ABS Lymphocytes 0.4 10^3/ul (1.0-4.8); ABS Monocytes 0.5 10^3/ul (0-0.8); ABS Neutrophils 4.4 10^3/ul (1.5-7.7); Lymphocyte % 7.3 %; Nucleated Red Blood Cells % 0.4
[2022-05-23 07:15] LABS: Calcium 9.2 mg/dL (8.6-10.3); Magnesium 1.8 mg/dL (1.9-2.7); Potassium 4.5 mmol/L (3.5-5.0); eGFR CKD-EPI 93.3 (>60)
[2022-05-23] MEDS: Pantoprazole VIAL 40 MG VIAL IV SCH ×2 (09:49→21:45)
[2022-05-23] MEDS: Timolol 0.5% OPTH.SOL BTL BOTH EYES SCH ×2 (09:55→22:01)
[2022-05-23 11:57] LABS: Corrected Retic Count 0.2 % (0.5-1.5); Hematocrit for Retic CNT 24 % (35-47); Immature Retic Fraction 0.21; RBC Retic Count 2.46 10^6/uL (3.70-4.87)
[2022-05-23 12:21] LABS: Ferritin 339.5 ng/mL (11-307)
[2022-05-23 13:31] LABS: Ferritin 332.3 ng/mL (11-307)
[2022-05-23 14:00] LABS: Activated Partial Thrombo Time 30.5 seconds (26.0-38.0); INR 1.6 (0.89-1.11)
[2022-05-23] MEDS: Ondansetron 4 mg VIAL 2 MG/ML 2 ml VIAL IV PRN (16:37)
[2022-05-23 16:49] LABS: Albumin 16.2 mg/dL; Albumin/Globulin Ratio 0.55; Protein,Total, Random Urine 45 mg/dL
[2022-05-23] MEDS: Latanoprost 0.005% 2.5 ml BTL BOTH EYES SCH (21:56)
[2022-05-24 05:23] LABS: Calcium 9.2 mg/dL (8.6-10.3); Magnesium 1.9 mg/dL (1.9-2.7); Potassium 4.6 mmol/L (3.5-5.0); eGFR CKD-EPI 89.6 (>60)
[2022-05-24 05:43] LABS: Hematocrit 24 % (35-47); Hemoglobin 7.9 g/dL (12.0-16.0); Mean Corpuscular HGB Conc 32 g/dL (31-36); Mean Corpuscular Hemoglobin 31 pg (27-31); Mean Corpuscular Volume 96 fL (80-97); Red Blood Count 2.53 10^6 /uL (3.70-4.87)
[2022-05-24 07:13] LABS: Mean Platelet Volume 9.6 fL (7.4-10.4); Platelet Count 85 10^3/uL (150-450); Red Cell Distribution Width 17 % (10-15)
[2022-05-24 07:15] LABS: RBC Morphology Normal (Normal)
[2022-05-24 07:17] LABS: ABS Eosinophils 0.1 10^3/ul (0-0.6); ABS Lymphocytes 0.1 10^3/ul (1.0-4.8); ABS Neutrophils 5.6 10^3/ul (1.5-7.7)
[2022-05-24] MEDS: Ondansetron 4 mg VIAL 2 MG/ML 2 ml VIAL IV PRN (07:38)
[2022-05-24] MEDS: Pantoprazole VIAL 40 MG VIAL IV SCH ×2 (08:41→21:29)
[2022-05-24] MEDS: Timolol 0.5% OPTH.SOL BTL BOTH EYES SCH ×2 (12:41→21:34)
[2022-05-24] MEDS: Latanoprost 0.005% 2.5 ml BTL BOTH EYES SCH (21:39)
[2022-05-25 05:32] LABS: Hematocrit 25 % (35-47); Mean Corpuscular HGB Conc 32 g/dL (31-36); Mean Corpuscular Hemoglobin 31 pg (27-31); Mean Corpuscular Volume 98 fL (80-97); Mean Platelet Volume 9.2 fL (7.4-10.4); Platelet Count 109 10^3/uL (150-450); Red Blood Count 2.56 10^6 /uL (3.70-4.87); Red Cell Distribution Width 17 % (10-15); White Blood Count 6.8 10^3/uL (3.5-10.8)
[2022-05-25 05:40] LABS: ABS Lymphocytes 0.3 10^3/ul (1.0-4.8); ABS Monocytes 0.7 10^3/ul (0-0.8); ABS Neutrophils 5.8 10^3/ul (1.5-7.7); ABS Nucleated RBC 2.7 10^3/ul; Eosinophil % 0.1 %; Lymphocyte % 4.5 %; Nucleated Red Blood Cells % 40.1
[2022-05-25] MEDS: Pantoprazole VIAL 40 MG VIAL IV SCH ×2 (09:49→22:01)
[2022-05-25] MEDS: Timolol 0.5% OPTH.SOL BTL BOTH EYES SCH ×2 (09:50→22:04)
[2022-05-25] MEDS: Latanoprost 0.005% 2.5 ml BTL BOTH EYES SCH (22:04)
[2022-05-26 06:13] LABS: Hematocrit 26 % (35-47); Hemoglobin 8.3 g/dL (12.0-16.0); Mean Corpuscular HGB Conc 31 g/dL (31-36); Mean Corpuscular Hemoglobin 31 pg (27-31); Mean Corpuscular Volume 100 fL (80-97); Mean Platelet Volume 8.5 fL (7.4-10.4); Platelet Count 113 10^3/uL (150-450); Red Blood Count 2.64 10^6 /uL (3.70-4.87); Red Cell Distribution Width 17 % (10-15)
[2022-05-26 06:23] LABS: ABS Lymphocytes 0.2 10^3/ul (1.0-4.8); ABS Monocytes 0.5 10^3/ul (0-0.8); ABS Neutrophils 6.2 10^3/ul (1.5-7.7); ABS Nucleated RBC 1.7 10^3/ul; Eosinophil % 0.1 %; Lymphocyte % 2.3 %; Nucleated Red Blood Cells % 24.1
[2022-05-26 07:05] LABS: Calcium 9.2 mg/dL (8.6-10.3); Magnesium 2.3 mg/dL (1.9-2.7); eGFR CKD-EPI 52.7 (>60)
[2022-05-26 07:21] LABS: Potassium 5.1 mmol/L (3.5-5.0)
[2022-05-26] MEDS ORDERED: NS 0.9% 1000 ml BAG 1,000 ML IV SCH (07:30)
[2022-05-26] MEDS: Timolol 0.5% OPTH.SOL BTL BOTH EYES SCH (08:42)
[2022-05-26] MEDS: Pantoprazole VIAL 40 MG VIAL IV SCH (08:42)
[2022-05-26 10:34] VITALS: BP 94/63
[2022-05-26 17:45] LABS: BM Result Summary Normal
== END 2022-05-26 11:50 | DRG 843 ==
LOC: ED 04:42 → EDHOLD 12:43 → SUATTDRO 12:43 → EDHOLD 13:42 → ICU 14:06 → MEDTELE 05-10 04:18
PROVIDERS: ADMIT Internal Medicine; ATTEND Student in an Organized Health Care Education/Training Program